=== PATIENT | male | born 1995 | race Caucasian/White ===

== ENCOUNTER 2017-10-23 07:52 | Emergency (ER) | payer OTHER ==
[~2017-10-23] VITALS: Ht 180.3 cm; Wt 73.5 kg
[2017-10-23 07:54] VITALS: TEMP 36.2; Ht 180.3 cm; Wt 73.5 kg
[2017-10-23] MEDS ORDERED: RANI150T3 PO (08:35)
[2017-10-23 08:46] LABS: BASO % 0.3 %; BASO ABS # 0.02 K/uL (0-0.2); EOS % 3.2 %; IG# 0.01 K/uL (0.00-0.02); LYMPH % 35.5 %; MEAN CELL VOLUME 86.8 fL (80-100); MEAN CORPUSCULAR HGB CONC 35.7 g/dl (32-36); MEAN PLATELET VOLUME 9.5 fL (7.4-10.4); MONO % 9.7 %; NEUT % 51.1 %; NEUT ABS # 3.16 K/uL (1.4-6.5); PLATELET COUNT 203 K/uL (130-400); RED CELL DISTRIBUTION WIDTH CV 12.3 % (11.5-14.5); RED CELL DISTRIBUTION WIDTH SD 39.2 fL (36.4-46.3); WHITE BLOOD COUNT 6.19 K/uL (4.8-10.8)
[2017-10-23 09:03] LABS: ALBUMIN 4.4 gm/dl (3.4-5.0); CREATININE 0.96 mg/dl (0.60-1.40); POTASSIUM 3.6 mmol/L (3.5-5.1)
[2017-10-23 09:06] LABS: TOTAL PROTEIN 7.5 gm/dl (6.4-8.2)
--- NOTE | 2017-10-23 10:32 | DIAGNOSTIC IMAGING REPORT ---
ABDOMINAL ULTRASOUND, RIGHT UPPER QUADRANT HISTORY: Abdominal pain. COMPARISON: None. FINDINGS: The liver is sonographically normal. There is no biliary ductal dilatation. The gallbladder is normal. No gallstones are identified. The pancreas is within normal limits. There is no right hydronephrosis. IMPRESSION: No significant abnormality identified within the right upper quadrant. Electronically signed by: Trey Cartwright M.D. 10/23/2017 10:30 AM Dictated Date/Time: 10/23/2017 10:30 AM
[2017-10-23 11:16] VITALS: BP 125/81; PULSE 61; O2SAT 100
--- NOTE | 2017-10-23 16:30 | EMERGENCY ROOM VISIT NOTE ---
ED Visit Note First contact with patient: 08:02 Chief Complaint: Abdominal pain. History of Present Illness: Mr. Polo is a 22 year-old white male who ambulates into the ED complaining of right upper quadrant abdominal pain. Historically patient reports history of significant gastrointestinal disorders or abdominal surgeries. Patient reports he has been having ongoing right upper quadrant pain for the last 11 days. He reports 11 days ago he reports he was smoking marijuana and approximately 20 minutes after smoking he started developing pain; historically patient reports he has been smoking marijuana daily for the past 2 years and has previous similar reactions. Currently he places his discomfort in the right upper quadrant and describes it as if someone has tight a rope around his abdomen and is pulling at tight. He currently rates his discomfort 4/10 but does report its been high as 8/10. His pain is non-radiating. In addition to smoking marijuana he is also noted an increase in pain with running. He has not identified any alleviating factors for pain except for rest. He has taken one dose of acetaminophen but has had no relief of his discomfort. Approximately 7 days ago he was seen at [facility] and does not know what his definitive diagnosis was labeled but reports he was prescribed Zantac; he reports she's been using Zantac without relief of his discomfort. Associated with his pain he reports a decreased appetite. Patient denies fevers, chills, sweats, skin eruptions, skin color changes, upper respiratory tract symptoms, shortness of breath, chest pain, nausea, vomiting, diarrhea, constipation, rectal bleeding, black/tarry stools, urinary symptoms, hematuria, back/flank pain. Review of Systems: As noted above in history of present illness. All body systems were reviewed and found to be negative as noted above. Past Medical History: As previously noted, hypertension, unspecified skin disorder, asthma, pneumonia, anxiety and status post nasal reconstruction. Current Medications: As noted above. Allergies to Medications: Patient denies. Social History: Patient is currently University student; he feels safe in his home environment; patient denies tobacco use; patient admits to alcohol use. Physical Examination: Vital Signs: Date Time Temp Pulse Resp B/P (MAP) Pulse Ox O2 Delivery O2 Flow Rate FiO2 10/23/17 11:16 61 16 125/81 100 10/23/17 10:30 61 16 125/81 100 10/23/17 08:46 80 10/23/17 07:54 36.2 75 20 153/96 95 Room Air GENERAL: 22-year-old male in mild distress due to pain, nontoxic-appearing, afebrile and hemodynamically stable. NEUROLOGICAL: Awake, alert and oriented to person, place and time. Answering questions appropriately and following commands. Normal gait. Good hand eye coordination. SKIN: Warm, dry and pink. No soft tissue eruptions or trauma noted. HEENT: Atraumatic and normocephalic. PERRLA. Sclera white and conjunctiva pink. Oral cavity moist and pink. Pharynx is nonerythematous or edematous. Speech normal. No lymphadenopathy. Trachea midline. No jugular venous distention. BACK: No tenderness over the bony spine. No CVA tenderness. THORAX: Lungs sounds are clear to auscultation and equal bilaterally with symmetrical chest wall. No wheezing, rales or rhonchi. No crepitus, tenderness , subcutaneous air or deformities noted. HEART: Regular rate and rhythm. No gallops, rubs or murmurs are appreciated. ABDOMEN: Flat and soft with mild diffuse tenderness throughout the upper abdomen and minimal tenderness throughout the lower abdomen. Positive bowel sounds in all quadrants. No guarding, rigidity or organomegaly. EXTREMITIES: Moves all extremities well on command and with purpose. All distal neurovascular statuses are intact and equal bilaterally. ED Course: Patient is assessed as noted above. Laboratory Testing: Test 10/23/17 08:35 Range/Units White Blood Count 6.19 4.8-10.8 K/uL Red Blood Count 4.84 4.7-6.1 M/uL Hemoglobin 15.0 14.0-18.0 g/dL Hematocrit 42.0 42-52 % Mean Corpuscular Volume 86.8 80-100 fL Mean Corpuscular Hemoglobin 31.0 25-34 pg Mean Corpuscular Hemoglobin Concent 35.7 32-36 g/dl Platelet Count 203 130-400 K/uL Mean Platelet Volume 9.5 7.4-10.4 fL Neutrophils (%) (Auto) 51.1 % Lymphocytes (%) (Auto) 35.5 % Monocytes (%) (Auto) 9.7 % Eosinophils (%) (Auto) 3.2 % Basophils (%) (Auto) 0.3 % Neutrophils # (Auto) 3.16 1.4-6.5 K/uL Lymphocytes # (Auto) 2.20 1.2-3.4 K/uL Monocytes # (Auto) 0.60 0.11-0.59 K/uL Eosinophils # (Auto) 0.20 0-0.5 K/uL Basophils # (Auto) 0.02 0-0.2 K/uL RDW Standard Deviation 39.2 36.4-46.3 fL RDW Coefficient of Variation 12.3 11.5-14.5 % Immature Granulocyte % (Auto) 0.2 % Immature Granulocyte # (Auto) 0.01 0.00-0.02 K/uL Urine Color DK YELLOW Urine Appearance CLEAR CLEAR Urine pH 5.0 4.5-7.5 Urine Specific Moran 1.027 1.000-1.030 Urine Protein NEG NEG Urine Glucose (UA) NEG NEG Urine Ketones 1+ NEG Urine Occult Blood NEG NEG Urine Nitrite NEG NEG Urine Bilirubin NEG NEG Urine Urobilinogen NEG NEG Urine Leukocyte Esterase NEG NEG Sodium Level 137 136-145 mmol/L Potassium Level 3.6 3.5-5.1 mmol/L Chloride Level 103 98-107 mmol/L Carbon Dioxide Level 26 21-32 mmol/L Anion Gap 8.0 3-11 mmol/L Blood Urea Nitrogen 15 7-18 mg/dl Creatinine 0.96 0.60-1.40 mg/dl Est Creatinine Clear Calc Drug Dose 127.6 ml/min Estimated GFR () 131.4 Estimated GFR (Non- 113.3 BUN/Creatinine Ratio 16.0 10-20 Random Glucose 81 70-99 mg/dl Calcium Level 9.0 8.5-10.1 mg/dl Total Bilirubin 1.1 0.2-1 mg/dl Direct Bilirubin 0.2 0-0.2 mg/dl Aspartate Amino Transf (AST/SGOT) 23 15-37 U/L Alanine Aminotransferase (ALT/SGPT) 21 12-78 U/L Alkaline Phosphatase 62 45-117 U/L Total Protein 7.5 6.4-8.2 gm/dl Albumin 4.4 3.4-5.0 gm/dl Lipase 91 73-393 U/L Urine Opiates Screen NEG NEG Urine Methadone, Qualitative NEG NEG Urine Barbiturates NEG NEG Urine Phencyclidine (PCP) Level NEG NEG Ur Amphetamine/Methamphetamine NEG NEG MDMA (Ecstasy) Screen NEG NEG Urine Benzodiazepines Screen NEG NEG Urine Cocaine Metabolite NEG NEG Urine Marijuana (THC) POS NEG Gallbladder Ultrasound: Was reviewed by myself and read by the radiologist showing a normal-appearing liver. No biliary duct dilatation, gallstones and normal-appearing gallbladder. Normal-appearing pancreas. No right-sided hydronephrosis. Patient was offered pain medications and refused. Patient was reassessed multiple times during his stay in the emergency department. Patient's case was reviewed with Dr. Lewis; we agreed on diagnostic approach , treatment, disposition and plan. Patient was educated about today's findings and instructed on his treatment plan ; he verbalized understanding and agreement with this plan. Clinical Impression: Right upper quadrant pain. Marijuana abuse. Decision-Making: Initially my differential diagnosis I considered marijuana withdrawal, pancreatitis, hepatitis, cholecystitis, bowel obstruction, constipation and other causes. Disposition: Patient discharged home in stable condition; prior to departure he was reassessed and subjectively reported he was feeling the same and rated his discomfort 4/10. Plan: Patient was encouraged to alternate ibuprofen and acetaminophen every 3 hours as needed for persistent pain. Patient was encouraged to use OTC capsaicin cream over the area of pain. Patient is encouraged to follow-up with primary care provider or return to [facility] for recheck in 2-3 days. Patient was encouraged to stop marijuana and alcohol use until resolution of pain. Patient was encouraged return ED for worsening pain, fevers, vomiting or any new /concerning symptoms.
== END 2017-10-23 11:17 | disposition home or self-care (01) ==
LOC: C.EDB 07:53
DX: R10.11 Right upper quadrant pain (principal); F12.10 Cannabis abuse, uncomplicated; I10 Essential (primary) hypertension; J45.909 Unspecified asthma, uncomplicated; Z87.01 Personal history of pneumonia (recurrent); Z98.890 Other specified postprocedural states